=== PATIENT | male | born 1995 | race Two or more races ===

== ENCOUNTER 2022-06-05 10:17 | Emergency (ER) | payer BC, OTHER ==
[~2022-06-05] VITALS: Ht 177.8 cm; Wt 127.2 kg
[2022-06-05] MEDS ORDERED: IBUP800T26 PO (11:22)
[2022-06-05] MEDS ORDERED: CYCL-611 PO (11:22)
[2022-06-05 11:40] VITALS: BP 128/79
== END 2022-06-05 11:39 | disposition home or self-care (01) ==
LOC: ER 10:17
DX: R10.32 Left lower quadrant pain (principal); Z88.0 Allergy status to penicillin; Z88.1 Allergy status to other antibiotic agents